=== PATIENT | male | born 1960 ===

== ENCOUNTER 2018-06-02 14:06 | Emergency (ER) | payer OTHER ==
[2018-06-02 14:34] VITALS: BP 160/85; PULSE 69; RESP 18; TEMP 98.5; O2SAT 99
--- NOTE | 2018-06-02 15:50 | RAD ---
Date of service: 06/02/2018 PROCEDURE: Radiographs of the left tibia and fibula. HISTORY: left anterior lower leg pain COMPARISON: None available. TECHNIQUE: Frontal and lateral views obtained. 2 views obtained. FINDINGS: BONES: No fracture or destructive lesion. JOINT SPACES: Unremarkable. OTHER FINDINGS: None. IMPRESSION: Unremarkable radiographs of the left tibia and fibula.
--- NOTE | 2018-06-02 16:01 | ED PDOC ---
Lower Extremity Pain/Injury Time Seen by Provider: 06/02/18 14:38 Chief Complaint (Nursing): Lower Extremity Problem/Injury Chief Complaint (Provider): Lower Extremity Problem/Injury History Per: Patient Onset/Duration Of Symptoms: Days (4) Additional Complaint(s): 57 y/o male presents to the ED complaining of anterior left leg pain for the past 4 days. Patient states that 4 days ago suddenly had left leg discomfort w ith swelling and worst with flexion of the ankle. 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 Patient reports he last took ibuprofen and Tylenol 3 days ago and now been using tropical anesthetic cream. Patient denies trauma, fall, fever, chills, night sweats, numbness, or any tingling of foot. PMD: none provided Past Medical History Reviewed: Historical Data, Nursing Documentation, Vital Signs Vital Signs: Last Vital Signs Temp 98.5 F 06/02/18 14:31 Pulse 69 06/02/18 14:31 Resp 18 06/02/18 14:31 BP 160/85 H 06/02/18 14:31 Pulse Ox 99 06/02/18 14:31 - Medical History PMH: No Chronic Diseases - Family History Family History: States: Unknown Family Hx - Home Medications Home Medications: Ambulatory Orders Medication Instructions Recorded Ibuprofen [Motrin Tab] 600 mg PO Q6 PRN 7 Days tab 06/02/18 - Allergies Allergies/Adverse Reactions: Allergies Allergy/AdvReac Type Severity Reaction Status Date / Time No Known Allergies Allergy Verified 06/02/18 14:31 Review of Systems ROS Statement: Except As Marked, All Systems Reviewed And Found Negative Constitutional: Negative for: Fever, Chills, Sweats Musculoskeletal: Positive for: Leg Pain (left) Neurological: Negative for: Numbness Physical Exam - Reviewed Nursing Documentation Reviewed: Yes Vital Signs Reviewed: Yes - Physical Exam Appears: Positive for: No Acute Distress Extremity: Positive for: Normal ROM (with flexion and extension of knee and ankle.), Tenderness (palpation anterior lower left leg), Capillary Refill (Less 2 seconds), Other ((-) eccyhmosis erythemda on left anterior leg.). Negative for: Swelling DTR - Ankle (L): 2+ Neurological/Psych: Positive for: Awake, Alert, Oriented (x3) - ECG O2 Sat by Pulse Oximetry: 99 Medical Decision Making Medical Decision Making: Time:1511 Initial Impression: Initial Plan: -Tibia x-ray -Ibuprofen 600mg PO 1546: FINDINGS: BONES: No fracture or destructive lesion. JOINT SPACES: Unremarkable. OTHER FINDINGS: None. IMPRESSION: Unremarkable radiographs of the left tibia and fibula. 1553: Patient advised to rest, ice, elevate left leg and use compression. Patient is stable for discharge home. Scribe Attestation: Documented by Maegan Deshpande, acting as a scribe for Narcisa Bush. Provider Scribe Attestation: All medical record entries made by the Scribe were at my direction and personally dictated by me. I have reviewed the chart and agree that the record accurately reflects my personal performance of the history, physical exam, medical decision making, and the department course for this patient. I have also personally directed, reviewed, and agree with the discharge instructions and disposition. Disposition - Clinical Impression Clinical Impression: Huang splint of left lower extremity - Patient ED Disposition Is Patient to be Admitted: No Counseled Patient/Family Regarding: Studies Performed, Diagnosis, Need For Followup, Rx Given - Disposition Referrals: [facility] [Outside] [facility] [Outside] Disposition: Routine/Home Disposition Time: 16:36 Condition: STABLE Additional Instructions: Keep your leg elevated. Use ice packs to reduce swelling. Take ibuprofen for pain. Wear elastic compression bandages and use foam roller to massage your shins. Return to ER if your symptoms worsen despite taking medications. Prescriptions: Ibuprofen [Motrin Tab] 600 mg PO Q6 PRN 7 Days tab PRN Reason: Pain, Moderate (4-7) Instructions: Lower Extremity Muscle Strain (DC) Forms: [employer] (Hungarian) Print Language: CYMRO
== END 2018-06-02 16:36 | disposition home or self-care (01) ==
LOC: H.ER 14:06
DX: S86.892A Other injury of other muscle(s) and tendon(s) at lower leg level, left leg, initial encounter (principal)